=== PATIENT | female | born 1980 | race Caucasian/White ===

== ENCOUNTER 2018-10-09 08:49 | Day surgery (SDC) | payer OTHER ==
[2018-10-09] MEDS ORDERED: PERCOCET 5-3251 EACH PO (13:52)
== END 2018-10-09 17:20 | disposition home or self-care (01) ==
LOC: CIR.AMB 08:49
DX: T83.89XA Other specified complication of genitourinary prosthetic devices, implants and grafts, initial encounter (principal)